=== PATIENT | female | born 1975 | race Caucasian/White ===

== ENCOUNTER 2016-07-13 14:51 | Emergency (ER) | payer OTHER ==
[2016-07-13 15:14] VITALS: BP 119/80; PULSE 91; TEMP 98.3; BMI 34.7
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
[2016-07-13] MEDS ORDERED: METOCLOPRAMIDE HCL 10 MG TABLET (FP) PO ONE ×2 (15:55→15:59)
[2016-07-13] MEDS ORDERED: IBUPROFEN 600 MG TABLET (FP) PO ONE ×2 (15:55→15:59)
== END 2016-07-13 16:02 | disposition home or self-care (01) ==
LOC: JERFT 14:51
DX: S00.83XA Contusion of other part of head, initial encounter (principal); Y04.2XXA Assault by strike against or bumped into by another person, initial encounter; Y35.811A Legal intervention involving manhandling, law enforcement official injured, initial encounter; Y93.89 Activity, other specified; Y92.89 Other specified places as the place of occurrence of the external cause; Y99.0 Civilian activity done for income or pay
CPT/HCPCS: 99281-25

== ENCOUNTER 2016-09-13 18:59 | Emergency (ER) | payer OTHER ==
[2016-09-13 19:17] VITALS: BP 124/76; PULSE 82; TEMP 98; BMI 32.9
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
[2016-09-13 20:43] LABS: BASOPHIL 1.1 % (0-2.0); EOSINOPHIL 4.1 % (0-4.5); MCH 31.7 pg (25.7-33.7); MEAN PLT VOLUME 9.3 fl (7.5-11.1); NEUTROPHILS 62.8 % (42.8-82.8); PLATELET COUNT 311 K/MM3 (134-434); RDW 11.9 % (11.6-15.6); WHITE BLOOD COUNT 12.5 K/mm3 (4.0-10.0)
[2016-09-13 21:19] LABS: ALBUMIN 3.8 g/dl (3.4-5.0); ANION GAP 8 (8-16); CALCIUM 8.8 mg/dL (8.5-10.1); CHOLESTEROL 169 mg/dL (50-200); CO2 22 mmol/L (21-32); CREATININE 0.6 mg/dL (0.55-1.02); GLUCOSE,RANDOM 99 mg/dL (74-106); PHOSPHOROUS 3.2 mg/dL (2.5-4.9); SGOT/AST 19 U/L (15-37); SGPT/ALT 29 U/L (12-78); URIC ACID 3.7 mg/dL (2.6-7.2)
[2016-09-13 21:21] LABS: ALK PHOS 122 U/L (45-117); BILIRUBIN,TOTAL 0.2 mg/dL (0.2-1.0); LDH 234 U/L (84-246); TOT PROT 7.3 g/dl (6.4-8.2)
[2016-09-13 22:01] LABS: HIV 1 & 2 AB NEGATIVE; HIV 1 AGp24 NEGATIVE
[2016-09-15 06:06] LABS: HEP B SURFACE AB Reactive (.)
== END 2016-09-13 20:59 | disposition home or self-care (01) ==
LOC: JERFT 18:59
DX: Z77.21 Contact with and (suspected) exposure to potentially hazardous body fluids (principal); Y35.91XA Legal intervention, means unspecified, law enforcement official injured, initial encounter; X58.XXXA Exposure to other specified factors, initial encounter; Y93.89 Activity, other specified; Y92.9 Unspecified place or not applicable; Y99.0 Civilian activity done for income or pay
CPT/HCPCS: 36415; 80053; 82465; 82977; 83615; 84100; 84478; 84550; 84703; 85025; 86704; 86706; 87340; 87389; 99281-25

== ENCOUNTER 2016-12-05 15:10 | Emergency (ER) | payer OTHER ==
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
[2016-12-05 15:23] VITALS: BP 156/85; PULSE 108; TEMP 98; BMI 34.7
[2016-12-05] MEDS ORDERED: KETOROLAC TROMETHAMINE 60 MG/2 ML VIAL IM ONE (15:35)
[2016-12-05 15:45] LABS: URINE APPEARANCE CLEAR; URINE BILIRUBIN NEGATIVE (NEGATIVE); URINE BLOOD NEGATIVE (NEGATIVE); URINE COLOR LTYELLOW; URINE GLUCOSE (UA) NEGATIVE (NEGATIVE); URINE KETONE NEGATIVE (NEGATIVE); URINE LEUK ESTERASE NEGATIVE (NEGATIVE); URINE NITRITE NEGATIVE (NEGATIVE); URINE PROTEIN NEGATIVE (NEGATIVE); URINE UROBILINOGEN NEGATIVE E.U./dl (0.2-1.0)
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
== END 2016-12-05 16:22 | disposition home or self-care (01) ==
LOC: JERFT 15:10 → JER 15:10 → JERFT 16:22
PROC: 3E0233Z Introduction of Anti-inflammatory into Muscle, Percutaneous Approach (ICD-10-PCS; principal; 2016-12-05)
DX: S39.82XA Other specified injuries of lower back, initial encounter (principal); X50.0XXA Overexertion from strenuous movement or load, initial encounter; Y93.F2 Activity, caregiving, lifting; Y92.89 Other specified places as the place of occurrence of the external cause; Y99.0 Civilian activity done for income or pay
CPT/HCPCS: 81003; 84703; 99281-25

== ENCOUNTER 2016-12-21 13:44 | Emergency (ER) | payer OTHER ==
[2016-12-21 13:52] VITALS: BP 112/72; TEMP 97.3; BMI 33.6
[2016-12-21] MEDS ORDERED: KETOROLAC TROMETHAMINE 60 MG/2 ML VIAL ONE (14:11)
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
[2016-12-21] MEDS ORDERED: KETOROLAC TROMETHAMINE 60 MG/2 ML VIAL IM ONE (14:19)
[2016-12-21 14:23] VITALS: PULSE 90
== END 2016-12-21 14:36 | disposition home or self-care (01) ==
LOC: JERFT 13:44
PROC: 3E0233Z Introduction of Anti-inflammatory into Muscle, Percutaneous Approach (ICD-10-PCS; principal; 2016-12-21)
DX: S29.012A Strain of muscle and tendon of back wall of thorax, initial encounter (principal); S46.812A Strain of other muscles, fascia and tendons at shoulder and upper arm level, left arm, initial encounter; Y35.811A Legal intervention involving manhandling, law enforcement official injured, initial encounter; Y93.89 Activity, other specified; Y92.89 Other specified places as the place of occurrence of the external cause; Y99.0 Civilian activity done for income or pay
CPT/HCPCS: 99281-25

== ENCOUNTER 2018-05-18 12:08 | Emergency (ER) | payer OTHER ==
[2018-05-18 12:25] VITALS: BP 117/74; PULSE 92; TEMP 97; BMI 25.7
[2018-05-18] MEDS ORDERED: IBUPROFEN 600 MG TABLET (FP) PO ONE ×2 (12:34)
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
== END 2018-05-18 12:46 | disposition home or self-care (01) ==
LOC: JER 12:08 → JERFT 12:08
DX: S29.012A Strain of muscle and tendon of back wall of thorax, initial encounter (principal); S39.012A Strain of muscle, fascia and tendon of lower back, initial encounter; M94.0 Chondrocostal junction syndrome [Tietze]; Y35.811A Legal intervention involving manhandling, law enforcement official injured, initial encounter; Y93.89 Activity, other specified; Y92.89 Other specified places as the place of occurrence of the external cause; Y99.8 Other external cause status
CPT/HCPCS: 99281-25

== ENCOUNTER 2019-03-09 14:50 | Emergency (ER) | payer OTHER ==
[2019-03-09 15:18] VITALS: BP 116/72; PULSE 98; TEMP 98; BMI 26.5
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
== END 2019-03-09 15:27 | disposition home or self-care (01) ==
LOC: JER 14:50
DX: S46.811A Strain of other muscles, fascia and tendons at shoulder and upper arm level, right arm, initial encounter (principal); X50.0XXA Overexertion from strenuous movement or load, initial encounter; Y35.811A Legal intervention involving manhandling, law enforcement official injured, initial encounter; Y93.89 Activity, other specified; Y92.89 Other specified places as the place of occurrence of the external cause; Y99.8 Other external cause status
CPT/HCPCS: 99281-25